=== PATIENT | female | born 1995 | race Caucasian/White ===

== ENCOUNTER 2020-03-18 04:28 | Emergency (ER) | payer OTHER ==
[~2020-03-18] VITALS: Ht 157.5 cm; Wt 57.7 kg
[2020-03-18 04:40] VITALS: BP 127/74
[2020-03-18 04:45] LABS: CLARITY,URINE SLIGHTLY CLOUDY; COLOR,URINE YELLOW
[2020-03-18 04:46] LABS: BACTERIA,URINE TRACE /HPF; BILIRUBIN,URINE NEGATIVE (NEGATIVE); GLUCOSE, URINE (UA) NEGATIVE (NEGATIVE); KETONES,URINE NEGATIVE (NEGATIVE); LEUKOCYTE ESTERASE ,URINE 1+ (NEGATIVE); NITRITE,URINE NEGATIVE (NEGATIVE); PROTEIN,URINE NEGATIVE (NEGATIVE); RBC,URINE 0-2 /HPF
[2020-03-18] MEDS ORDERED: IBUP-1780 PO (05:00)
[2020-03-18] MEDS ORDERED: SULF1TAB35 PO (05:00)
[2020-03-18] MEDS ORDERED: PHEN-640 PO (05:00)
--- NOTE | 2020-03-18 05:03 | ED GI ---
General Chief Complaint: Abdominal/GI Problems Stated Complaint: ABD PAIN Nursing Triage Note: pt states she had an iud placed and started having increased pain tonight Sepsis Screen: No Definite Risk Source of Information: Patient History of Present Illness Date Seen by Provider: Mar 18, 2020 Time Seen by Provider: 04:58 Initial Comments 25 y/o female presents w c/o lower abdominal discomfort for 1 day since having an IUD placed. no fever, no nausea, no dysuria, no vaginal DC Allergies and Home Medications Patient Home Medication List Home Medication List Reviewed: Yes Review of Systems Review of Systems Constitutional: No dizziness, No fever, No malaise Gastrointestinal: Abdominal Pain (cramping); Denies Diarrhea, Denies Difficulty Swallowing, Denies Nausea, Denies Poor Appetite, Denies Vomiting Genitourinary: See HPI; Denies Burning, Denies Discharge, Denies Drainage, Denies Frequency; Flank Pain (on right side); Denies Hematuria; Pain; Denies Urgency Musculoskeletal: No back pain, No joint pain Past Uobxqap-[id number]-Hquvui Hx Past Med/Social Hx: Reviewed Nursing Past Med/Soc Hx Patient Social History Alcohol Use: Denies Use Recreational Drug Use: No Smoking Status: Never a Smoker 2nd Hand Smoke Exposure: No Recent Foreign Travel: No Contact w/Someone Who Travel: No Recent Infectious Disease Expo: No Recent Hopitalizations: No Physical Abuse: No Sexual Abuse: No Mistreated: No Fear: No Seasonal Allergies Seasonal Allergies: No Past Medical History Surgeries: No Respiratory: No Cardiac: No Neurological: No Genitourinary: No Gastrointestinal: No Musculoskeletal: No Endocrine: No HEENT: No Cancer: No Psychosocial: No Integumentary: No Blood Disorders: No Physical Exam Vital Signs Vital Signs - First Documented 03/18/20 04:40 Temp 36.1 Pulse 55 Resp 16 B/P (MAP) 127/74 (91) Pulse Ox 96 O2 Delivery Room Air Capillary Refill : Less Than 3 Seconds Height/Weight/BMI Height: '" Weight: lbs. oz. kg; 23.00 BMI Method: General Appearance: WD/WN, no apparent distress Gastrointestinal: soft, no organomegaly, no pulsatile mass; No distended, No guarding, No rebound; tenderness (mild suprapubic and R flank); No hernia, No mass Extremities: non-tender, normal inspection Back: normal inspection, no CVA tenderness Progress/Results/Core Measures Results/Orders Lab Results Laboratory Tests Test 03/18/20 04:35 Range/Units Urine Color YELLOW Urine Clarity SLIGHTLY CLOUDY Urine pH 6.0 5-9 Urine Specific Schurz <=1.005 1.016-1.022 Urine Protein NEGATIVE NEGATIVE Urine Glucose (UA) NEGATIVE NEGATIVE Urine Ketones NEGATIVE NEGATIVE Urine Nitrite NEGATIVE NEGATIVE Urine Bilirubin NEGATIVE NEGATIVE Urine Urobilinogen 0.2 < = 1.0 MG/DL Urine Leukocyte Esterase 1+ H NEGATIVE Urine RBC (Auto) TRACE-I NEGATIVE Urine RBC 0-2 /HPF Urine WBC 10-25 H /HPF Urine Squamous Epithelial Cells 2-5 /HPF Urine Crystals NONE /LPF Urine Bacteria TRACE /HPF Urine Casts NONE /LPF Urine Mucus NEGATIVE /LPF Urine Culture Indicated YES Urine Test NEGATIVE NEGATIVE My Orders Orders - ROVENSTINE,KRYSTIN L DO Ua Culture If Indicated (03/18/20 04:32) Hcg,Qualitative Urine (03/18/20 04:32) Urine Culture (03/18/20 04:35) Vital Signs/I&O 03/18/20 04:40 Temp 36.1 Pulse 55 Resp 16 B/P (MAP) 127/74 (91) Pulse Ox 96 O2 Delivery Room Air Blood Pressure Mean: 91 Departure Impression Primary Impression: Urinary tract infection Qualified Codes: N30.00 - Acute cystitis without hematuria Disposition: 01 HOME, SELF-CARE Condition: Stable Departure-Patient Inst. Decision time for Depature: 05:00 Referrals: [facility] (PCP) Primary Care Physician SUNNY LOBO APRN (Family) Primary Care Physician Patient Instructions: Urinary Tract Infection, Adult (DC) Add. Discharge Instructions: Follow up with your PCP (or whoever placed your IUD) in 1 week for re-evaluation All discharge instructions reviewed with patient and/or family. Voiced understanding. Scripts Ibuprofen (Ibuprofen) 800 Mg Tablet 800 MG PO Q8H PRN for PAIN, #30 TAB 0 Refills Prov: ROVENSTINE,KRYSTIN L DO 03/18/20 Phenazopyridine HCl (Pyridium) 200 Mg Tablet 1 TAB PO BID, #6 TAB Prov: ROVENSTINE,KRYSTIN L DO 03/18/20 Sulfamethoxazole/Trimethoprim (Bactrim Ds Tablet) 1 Each Tablet 1 EACH PO BID, #14 TAB 0 Refills Prov: ROVENSTINE,KRYSTIN L DO 03/18/20 KRYSTIN TAM DO Mar 18, 2020 05:03
== END 2020-03-18 05:12 | disposition home or self-care (01) ==
LOC: ER FS 04:32
DX: N39.0 Urinary tract infection, site not specified (principal)
CPT/HCPCS: 81000; 84703; 87088; 99282

== ENCOUNTER → 2020-05-05 | Outpatient (CLI) | payer OTHER ==
[~2020-05-05] MED LIST: IBUP-1780 PO; PHEN-640 PO; SULF1TAB35 PO
== END ==
LOC: LAB 17:42
PROVIDERS: ATTEND Nurse Practitioner Family
DX: A54.9 Gonococcal infection, unspecified (principal); A74.9 Chlamydial infection, unspecified

== ENCOUNTER → 2020-05-11 | Outpatient (CLI) | payer OTHER | LOC: LABNPT 17:36 | PROVIDERS: ATTEND Nurse Practitioner Family | DX: Z11.8 Encounter for screening for other infectious and parasitic diseases (principal) | CPT/HCPCS: 87210; 87491; 87591 ==